=== PATIENT | male | born 1955 | race Caucasian/White ===

== ENCOUNTER 2018-07-22 10:14 | Day surgery (SDC) | payer MEDICARE, MEDICAID ==
[2018-07-22] VITALS (12 sets, daily range): BP systolic 86–107; BP diastolic 54–67; PULSE 57–90; TEMP 97.9
[~2018-07-22] VITALS: Ht 172.7 cm; Wt 129.0 kg
[2018-07-22 10:56] LABS: HEMATOCRIT 47.3 % (42.0-52.0); HEMOGLOBIN 15.6 g/dl (13.5-18.0); MEAN CELL VOLUME 89 fl (80.0-100.0); MEAN CORPUSCULAR HEMOGLOBIN 29 pg (27.0-31.0); MEAN CORPUSCULAR HGB CONC 33 g/dl (33.0-37.0); MEAN PLATELET VOLUME 8.9 fl (7.4-10.4); PLATELET COUNT 240 K/mm3 (130-400); RED BLOOD COUNT 5.31 M/mm3 (4.20-5.60); REDCELL DISTRIBUTION WIDTH-CV 13.8 % (11.5-14.5)
[2018-07-22] MEDS ORDERED: NORVASC 10MG10 MG PO (11:01)
[2018-07-22 11:02] LABS: CALCIUM 9.2 mg/dL (8.4-10.2); CREATININE, serum 0.8 (0.66-1.25); POTASSIUM 4.7 mmol/L (3.4-5.0); PROTHROMBIN TIME 11.8 SECONDS (9.7-12.8)
[2018-07-22] MEDS ORDERED: 00186-0370-20 IH (11:02)
[2018-07-22] MEDS ORDERED: LIPITOR 80MG80 MG PO (11:02)
[2018-07-22] MEDS ORDERED: COREG 25MG25 MG/TAB PO (11:04)
[2018-07-22] MEDS ORDERED: FLEXERIL 1010 MG/TAB PO (11:05)
[2018-07-22] MEDS ORDERED: NEURONTIN100 MG/CAP PO (11:07)
[2018-07-22] MEDS ORDERED: LANTUS SOLOS100 U/ML SQ (11:09)
[2018-07-22] MEDS ORDERED: PRINIVIL20 MG PO (11:12)
[2018-07-22] MEDS ORDERED: GLUCOPHAGE1000 MG PO (11:12)
[2018-07-22] MEDS ORDERED: ALEVE 220MG220 MG PO (11:14)
--- NOTE | 2018-07-22 13:26 | NUR ---
ALL MEDICATIONS GIVEN VORB WITH MD. SEE MERGE FOR ALL MEDICATION ADMIN TIMES. SEE MERGE FOR ALL RASS ASSESSMENTS DURING AND POST PROCEDURE.
[2018-07-22] MEDS ORDERED: RANEXA 500MG T500 MG PO (14:30)
[2018-07-22] MEDS ORDERED: PLAVIX 75MG TAB75 MG PO (14:31)
[2018-07-22] MEDS ORDERED: ASPIRIN E.C. 8181 MG PO (14:33)
--- NOTE | 2018-07-22 16:29 | NUR ---
NO SEDATION USED ON THE PT PER DONTAE LAWSON IN [employer]
--- NOTE | 2018-07-22 16:34 | NUR ---
Pt complains of pain in lower back. 10/10 pain. Repositioned patient and applied heat to his lower back to help relieve pain. Will continue to make patient as comfortable as possible and watch his blood pressure. Last blood pressure was 91/59.
--- NOTE | 2018-07-22 17:17 | NUR ---
Pt is sleeping with at bedside. Pt tolerated intake with no N/V. Pt voided with no complications.
--- NOTE | 2018-07-22 18:40 | NUR ---
Pt up and ambulating in and around the unit with no complications. D/C instructions given to the earlier this afternoon. voices understanding. IV was discontinued with catheter tip intact, no phlebitis or infiltration. Pt was discharged via w/c to the care of in private vehicle with discharge instructions in hand.
== END 2018-07-22 18:57 | disposition home or self-care (01) ==
LOC: COL.CAR 10:14
PROVIDERS: Internal Medicine Cardiovascular Disease
DX: I25.10 Atherosclerotic heart disease of native coronary artery without angina pectoris (principal); R94.39 Abnormal result of other cardiovascular function study; Z95.1 Presence of aortocoronary bypass graft; G47.33 Obstructive sleep apnea (adult) (pediatric); E78.5 Hyperlipidemia, unspecified; I10 Essential (primary) hypertension
CPT/HCPCS: J1644; J7050; Q9967